=== PATIENT | male | born 1940 | race Caucasian/White ===

== ENCOUNTER 2022-02-15 14:38 | Emergency (ER) | payer MEDICARE, MEDICAID, SELFPAY ==
--- NOTE | ~2022-02-15 | XR_ITS ---
EXAMINATION: XR elbow LT min 3V DATE: 02/15/2022 15:28 INDICATION: Left elbow injury. TECHNIQUE: 4 views of left elbow were obtained. COMPARISON: None. FINDINGS: Bone alignment is normal. No fracture. Joint spaces are well maintained. There is no elbow joint effusion. There is soft tissue swelling overlying the olecranon. IMPRESSION: 1. No fracture. Reviewed, dictated and finalized at location A. IMPRESSION: 1. No fracture.
--- NOTE | ~2022-02-15 | XR_ITS ---
EXAMINATION: XR hand RT 2V INDICATION: Right hand pain and swelling TECHNIQUE: Two views of the right hand are obtained. COMPARISON: None available FINDINGS: Bone alignment is normal. There is no fracture. There is mild osteoarthritis of multiple in terphalangeal joints. IMPRESSION: 1. Polyarticular osteoarthritis without acute osseous abnormality. Reviewed, dictated and finalized at location F.
--- NOTE | ~2022-02-15 | CT_ITS ---
EXAMINATION: CT cervical spine wo con DATE: 02/15/2022 15:21 INDICATION: Head injury. TECHNIQUE: Computed tomography (CT) of the cervical spine was performed without intravenous contrast. Automated exposure control and iterative reconstruction technique were employed. The dose-length pro duct was 525.90 mGy-cm. COMPARISON: None FINDINGS: The visualized portions of the lung base apices demonstrate a 9 mm nodule in left upper lob e. There is 2 mm anterolisthesis of T2 on T3. Vertebral body heights are normal. There is severely de creased disc height from C3-C4 through C6-C7 with interbody fusion at C5-C6. The following disc level s are specifically discussed: C2-C3: There is mild right and severe left uncovertebral joint osteoarthritis. There is severe bilate ral facet joint osteoarthritis. There is mild bilateral neural foraminal stenosis. There is no centra l canal stenosis. C3-C4: There is severe bilateral uncovertebral joint osteoarthritis. There is severe bilateral facet joint osteoarthritis. There is moderate bilateral neural foraminal stenosis. There is mild central ca nal stenosis. C4-C5: There is moderate right and severe left uncovertebral joint osteoarthritis. There is severe bi lateral facet joint osteoarthritis. There is mild right and moderate left neural foraminal stenosis. There is mild central canal stenosis. C5-C6: There is moderate right and severe left uncovertebral joint hypertrophy. There is mild left fa cet joint osteoarthritis. There is ankylosis of right facet joint with moderate hypertrophy. There is mild bilateral neural foraminal stenosis. There is mild central canal stenosis. C6-C7: There is severe bilateral uncovertebral joint osteoarthritis. There is severe right and modera te left facet joint osteoarthritis. There is mild right neural foraminal stenosis. There is mild cent ral canal stenosis. C7-T1: There is no uncovertebral joint osteoarthritis. There is severe bilateral facet joint osteoart hritis. There is mild bilateral neural foraminal stenosis. There is no central canal stenosis. IMPRESSION: 1. No fracture. 2. Severe cervical spondylosis. 3. 9 mm left upper lobe pulmonary nodule suspicious for primary bronchogenic carcinoma. Noncontrast l ow-dose chest CT is recommended in 3 months. Reviewed, dictated and finalized at location A. IMPRESSION: 1. No fracture. 2. Severe cervical spondylosis. 3. 9 mm left upper lobe pulmonary nodule suspicious for primary bronchogenic ca rcinoma. Noncontrast low-dose chest CT is recommended in 3 months.
--- NOTE | ~2022-02-15 | CT_ITS ---
EXAMINATION: CT brain wo con DATE: 02/15/2022 15:21 INDICATION: Head injury. TECHNIQUE: Computed tomography (CT) of the head was performed without intravenous contrast. The mA wa s adjusted according to patient size. Iterative reconstruction technique was employed. The dose-lengt h product was 681.00 mGy-cm. COMPARISON: None FINDINGS: There is no intracranial hemorrhage, acute infarction, or abnormal intracranial mass lesion . There are scattered areas of low attenuation in the cerebral white matter. The ventricles are macarena l in size. Cavum septum callosum and vergae are noted. There is mucosal thickening in the paranasal s inuses. There are likely changes of ocular lens replacement surgeries. There is right periorbital sof t tissue swelling. There are trace mastoid effusions. IMPRESSION: 1. Mild nonspecific cerebral white matter disease, which likely represents chronic small vessel ische victor manuel disease. Reviewed, dictated and finalized at location A. IMPRESSION: 1. Mild nonspecific cerebral white matter disease, which likely represents cotton candy maker margarita small vessel ischemic disease.
[2022-02-15 14:47] VITALS: BP 117/73; PULSE 73; RESP 20; O2SAT 96
--- NOTE | 2022-02-15 16:00 | ED.FALL ---
HPI - Fall General Chief Complaint: Fall Stated Complaint: glf hematoma rt eye Time Seen by Provider: 02/15/22 14:48 Source: patient, EMS and other History of Present Illness HPI Narrative: Patient was out on a trip with staff he was outside when he tripped on a sign and struck his head on concrete. EMS was called and patient is transferred to the ER for further evaluation. Patient denies any loss of consciousness he does report a headache denies any focal numbness or weakness denies any vision changes denies any prodrome prior to the fall such as chest pain, lightheadedness, dizziness. Denies any chest pain abdominal pain at this time. He also reports some mild pain in his right hand. His headache is achy, constant, no clear aggravating or alleviating factors, no radiation. Denies any neck pain. Staff at [facility] reports he has had a tetanus shot less than 10 years ago Related Data Home Medications Medication Instructions Recorded Confirmed alendronate 70 mg tablet (Fosamax) mg PO 02/15/22 apixaban 5 mg tablet (Eliquis) mg 02/15/22 aspirin 81 mg tablet mg PO 02/15/22 diltiazem HCl 240 mg capsule,24 mg PO 02/15/22 hr,extended release fexofenadine 180 mg tablet mg 02/15/22 finasteride 02/15/22 fluticasone propionate 50 intranasal 02/15/22 mcg/actuation nasal spray,suspension hydrochlorothiazide 12.5 mg capsule mg 02/15/22 lisinopril 40 mg tablet mg 02/15/22 omeprazole 20 mg tablet,delayed mg PO 02/15/22 release simvastatin 10 mg tablet mg 02/15/22 tamsulosin 0.4 mg capsule (Flomax) mg PO 02/15/22 Allergies Allergy/AdvReac Type Severity Reaction Status Date / Time No Known Allergies Allergy Verified 02/15/22 14:54 Review of Systems Review of Systems: CONSTITUTIONAL: Denies fever, chills, or sweats. EYES: Denies visual changes, redness, or discharge. ENT: Denies rhinorrhea, congestion, sore throat, or otalgia. CARDIOVASCULAR: Denies chest pain, palpitations, or edema. RESPIRATORY: Denies cough or dyspnea. GASTROINTESTINAL: Denies abdominal pain, nausea, vomiting, or diarrhea. GENITOURINARY: Denies dysuria or hematuria. SKIN: Denies rash or itching. MUSCULOSKELETAL: Denies back pain, or myalgia. NEUROLOGIC: Denies numbness, dizziness, or weakness. PSYCHIATRIC: Denies anxiety or depression. All systems reviewed & are unremarkable except as noted in HPI and below Exam Narrative: GENERAL: Well-appearing, well-nourished, and in no acute distress. HEAD: Normocephalic, ecchymosis and hematoma noted superior and lateral to the right orbit EYES: PERRLA and EOMI. ENT: Nares clear, no rhinorrhea or epistaxis. Mucous membranes moist. NECK: Supple. No masses. No JVD CHEST: Clear to auscultation. No respiratory distress. No wheezes rales or rhonchi HEART: Regular rate and rhythm. No murmur heard. Normal peripheral pulses. ABDOMEN: Soft, nontender, nondistended, normal active bowel sounds. EXTREMITIES: Normal range of motion. There are multiple superficial abrasions to the right hand as well as the left elbow there is no focal bony tenderness or obvious deformity to his extremities SKIN: Warm, dry, no rash. NEURO: Cranial nerves II through XII are intact patient has 5 out of 5 strength in all extremities alert and oriented x3. PSYCH: Normal mood and affect. Course Reevaluation(s) Reevaluation #1: Patient resting comfortably all results and plan reviewed with the patient as well as the [facility] staff. Staff and patient are comfortable outpatient plan. Date: 02/15/22 Time: 16:03 Vital Signs Vital signs: Vital Signs Pulse Rate 73 02/15/22 14:47 Respiratory Rate 20 02/15/22 14:47 Blood Pressure 117/73 02/15/22 14:47 Pulse Oximetry 96 02/15/22 14:47 Oxygen Delivery Room Air 02/15/22 14:47 Pulse Rate 90 02/15/22 16:46 Respiratory Rate 15 02/15/22 16:46 Blood Pressure 130/79 02/15/22 16:46 Pulse Oximetry 97 02/15/22 16:46 Oxygen Delivery Room Air
[2022-02-15] MEDS: ACETAMINOPHEN 500 MG TABLET 1000 MG PO (16:44)
[2022-02-15 16:46] VITALS: BP 130/79; PULSE 90; RESP 15; O2SAT 97
== END 2022-02-15 16:58 | disposition home or self-care (01) ==
PROVIDERS: Emergency Provider Emergency Medicine; PCP Family Medicine
DX: S60.511A Abrasion of right hand, initial encounter (principal); S50.311A Abrasion of right elbow, initial encounter; S09.90XA Unspecified injury of head, initial encounter; R91.1 Solitary pulmonary nodule; W01.0XXA Fall on same level from slipping, tripping and stumbling without subsequent striking against object, initial encounter
CPT/HCPCS: 70450; 72125; 73080; 73120; 99284; A9270